=== PATIENT | male | born 1985 | race Two or more races ===

== ENCOUNTER 2021-04-21 08:58 | Emergency (ER) | payer SELFPAY ==
[2021-04-21 09:25] VITALS: BP 150/85; PULSE 95; RESP 14; TEMP 37.3; O2SAT 98; BMI 32.0
[2021-04-21 09:29] VITALS: BP 150/85; PULSE 95; RESP 14; TEMP 37.3
[2021-04-21 09:46] LABS: UTC Strep Screen (Rapid) Negative (Negative)
--- NOTE | 2021-04-21 09:48 | HMH.EDUTC ---
[facility] [place] Clinical Impression: Viral syndrome, Exposure to COVID-19 virus Pharyngitis Qualifiers: Pharyngitis/tonsillitis etiology: unspecified etiology Qualified Code(s): J02.9 - Acute pharyngitis, unspecified Disposition: Home, Self-Care Condition on Discharge: Good Instructions: DI for COVID-19 (Suspected or Confirmed ), Preventing the Spread of Coronavirus Discharge Instructions Additional Instructions: Drink plenty of fluids. Take tylenol or ibuprofen for pain or fever. Take the medications as directed. Follow up with your regular doctor. GO TO THE ER FOR ANY WORSENING SYMPTOMS Quarantine until you know the results of your covid-19 test. If it is positive, the health department should call you and give you further instructions about your length of Quarantine and other things. Notify your school or workplace of your results and follow their instructions regarding return to work/school. Prescriptions: Brompheniramine/Pseudoephed/Dm [Bromfed Dm Cough Syrup] 5 ml PO Q6HP PRN #240 ml PRN Reason: Cough Azithromycin [Z-Kai 250mg Tab*] 250 mg PO UD DOSE PK #6 tab Ondansetron [Zofran 4mg ODT] 4 mg PO DAILYP PRN #12 tab PRN Reason: Nausea Ondansetron [Zofran 4mg ODT] 4 mg PO DAILYP PRN #12 tab PRN Reason: Nausea Transmission Status: Received by [id number] Referrals: Provider,Referral, [Primary Care Provider] - Forms: Work/School Release Time of Disposition: 09:56 Medical Decision Making - Medical Records Medical records reviewed: No: I reviewed the patient's medical records. - Roque Inquiry Pt receiving controlled substance: No Vital Signs: 04/21/21 09:25 04/21/21 09:29 Temperature 99.2 F 99.2 F Temperature Source Oral Pulse Rate 95 H Pulse Rate [Left] 95 H Respiratory Rate 14 14 Blood Pressure 150/85 H Blood Pressure [Right Arm] 150/85 H Blood Pressure Mean [Right Arm] 106 02 Sat by Pulse Oximetry 98 - Lab Data Lab results reviewed: Yes: I reviewed the patient's lab results. Lab Results 04/21/21 09:27: Strep Scn Rapid Clinic Negative Orders (Tests/Meds): ORDERS Category Date Time Status Covid-19 Nasal PCR ([facility]) Routine Lab 04/21/21 09:28 Received Strep Screen Confirmation Stat Micro 04/21/21 09:27 Received [facility] UTC HPI - General Stated complaint: abdominal pains. diarr,headache Time Seen by Provider: 04/21/21 09:48 Mode of Arrival: Ambulatory Source of Information: Patient Limitations: No Limitations Description of Symptoms (Recalled from Triage Doc. by RN): stomach ache, PHILIP, and diarhea x2 days. HEENT Symptoms (Recalled from RN notes): Yes (PHILIP) Resp Symptoms (Recalled from RN notes): No Skin Symptoms (Recalled from RN notes): No MS Symptoms (Recalled from RN notes): No Functional Status (Recalled from RN notes): na - History of Present Illness Provider Complaint: He states thru his coworker that is translating for him that he has felt bad for 2 days. He has had chilling and felt like he has a fever but he has not checked it with a thermometer. He has a dry cough, but he denies any shortness of breath. - Related Data Previous Rx's Medication Instructions Recorded Azithromycin [Z-Kai 250mg Tab*] 250 mg PO UD DOSE PK #6 tab 04/21/21 Brompheniramine/Pseudoephed/Dm 5 ml PO Q6HP PRN #240 ml 04/21/21 [Bromfed Dm Cough Syrup] Ondansetron [Zofran 4mg ODT] 4 mg PO DAILYP PRN #12 tab 04/21/21 Ondansetron [Zofran 4mg ODT] 4 mg PO DAILYP PRN #12 tab 04/21/21 - Worker's Comp Is this a Worker's Comp case?: No [facility] History - Hepatitis A Screen Drug use history?: No High risk sexual behaviors?: No History of sexually transmitted infection?: No Currently employed?: No Childcare worker?: No Do you have indoor plumbing?: Yes Do you have electricity?: Yes Attestation statement:: This patient has been screened for Hepatitis A risk factors. I have reviewed the patient's past medical history: Yes ROS
== END 2021-04-21 10:06 | disposition home or self-care (01) ==
PROVIDERS: Emergency Provider Nurse Practitioner Family
DX: B34.9 Viral infection, unspecified (principal); J02.9 Acute pharyngitis, unspecified; Z20.822 Contact with and (suspected) exposure to COVID-19
CPT/HCPCS: 87880; 99203; G0463; U0003